=== PATIENT | male | born 1965 | race American Indian/Alaskan Native ===

== ENCOUNTER 2019-12-28 23:56 | Emergency (ER) | payer SELFPAY ==
[2019-12-29 00:29] LABS: Hematocrit 45.9 % (35.5-45.6); Hemoglobin 14.9 gm/dl (11.8-15.2); Mean Corpuscular HGB Conc 32 % (32-34); Mean Corpuscular Volume 80 fl (84-94); Platelet Count 159 K/mm3 (140-440); Red Blood Count 5.76 M/mm3 (3.65-5.03); Red Cell Distribution Width 14.4 % (13.2-15.2)
[2019-12-29 00:50] LABS: BUN/Creatinine Ratio 20; Blood Urea Nitrogen 18 mg/dL (9-20); Calcium 9.6 mg/dL (8.4-10.2)
[2019-12-29 00:51] LABS: Alanine Aminotransferase 12 units/L (7-56); Albumin 4.4 g/dL (3.9-5); Hemolysis Index 12
[2019-12-29 02:21] LABS: Basophils % (Manual) 0 % (0.0-1.8); Hypochromasia 1+; Total Cells Counted 100
[2019-12-29 02:22] LABS: Platelet Estimate Consistent w Auto
[2019-12-29 03:48] LABS: Bilirubin,Urine NEG (Negative); Blood,Urine NEG (Negative); Color,Urine Yellow (Yellow); Mucus,Urine FEW /HPF; Protein,Urine <15 mg/dL mg/dL (Negative); Urobilinogen,Urine < 2.0 mg/dL (<2.0)
[2019-12-29] MEDS ORDERED: KETOROLAC 30 MG/1 ML INJ IV ONE (05:34)
[2019-12-29] MEDS ORDERED: ONDANSETRON 4 MG/2 ML INJ IV ONE (05:34)
--- NOTE | 2019-12-29 06:10 | Cat Scan Report ---
CT ABDOMEN AND PELVIS WITHOUT CONTRAST INDICATION: Left flank pain. Left abdominal pain. COMPARISON: No relevant prior imaging study available. TECHNIQUE: Axial, coronal and sagittal CT imaging of the abdomen and pelvis was performed without co ntrast. Lack of intravenous contrast limits evaluation of the vascular and solid organs. All CT sca ns at this location are performed using CT dose reduction for ALARA by means of automated exposure co ntrol. FINDINGS: LOWER CHEST: No significant abnormality. LIVER: A probable cyst along the lateral segment of the left hepatic lobe measures 1.3 cm. No additio nal significant abnormality. BILIARY: No significant abnormality. PANCREAS: No significant abnormality. SPLEEN: No significant abnormality. ADRENALS: No significant abnormality. KIDNEYS AND URETERS: A right upper renal pole stone measures 4 mm without associated obstruction. No additional stones are seen. There is a possible hemorrhagic cyst along the left upper renal pole mckenna uring 1.4 cm. No additional significant abnormality. GI TRACT: No significant abnormality of the stomach, small bowel or colon. Unremarkable appendix. PERITONEUM: No free fluid. No free air. No fluid collection. LYMPH NODES: No significant adenopathy. VASCULATURE: The aorta is normal in caliber with mild aortoiliac atherosclerosis. URINARY BLADDER: No significant abnormality. REPRODUCTIVE ORGANS: No significant abnormality. ADDITIONAL FINDINGS: None. SKELETAL SYSTEM: No significant abnormality. IMPRESSION: 1. Nonobstructive 4 mm right renal stone. 2. Possible left renal hemorrhagic cyst. A nonemergent renal ultrasound would be helpful for further evaluation. 3. Additional findings as above. Signer Name: Meng Lombardi MD Signed: 12/29/2019 6:06 AM Workstation Name: [id number]
--- NOTE | 2019-12-29 07:22 | Emergency Department Report ---
ED Abdominal Pain HPI - General Chief Complaint: Abdominal Pain Stated Complaint: BACK,SIDE AND STOMACH PAIN Source: patient Mode of arrival: Ambulatory Limitations: No Limitations - History of Present Illness Initial Comments: Patient is a 54-year-old [place] male with no past medical history who presents to the ED with complaint of acute onset persistent left flank pain that radiates to the lower back and left lower quadrant area for the last 3 weeks, worse in the last 2 days. Patient states that he was initially evaluated at an urgent care clinic and advised that his symptoms were due to muscle spasms muscle strain and was given a prescription for ibuprofen and muscle relaxants. Patient states that despite taking these medications the pain has worsened. Patient d enies testicular pain, fever, chills, nausea, vomiting, dizziness, syncope, diarrhea, change in vision, traumatic injury or heavy lifting, chest pain or shortness of breath. MD Complaint: abdominal pain, flank pain (left flank pain), other (lower back) -: Sudden, month(s) (1) Location: LLQ, L flank Radiation: LLQ, L flank, back (lower ) Migration to: no migration Severity: severe Severity scale (0 -10): 8 Quality: aching, sharp Consistency: constant Improves With: nothing Worsens With: nothing Associated Symptoms: denies other symptoms. denies: nausea, vomiting, diarrhea, fever, chills, constipation, hematemesis, hematochezia, melena, hematuria, anorexia, syncope, other Treatments Prior to Arrival: NSAIDs - Related Data Previous Rx's Medication Instructions Recorded Last Taken Type Ketorolac [Toradol] 10 mg PO Q8H PRN #20 tablet 12/29/19 Unknown Rx Ondansetron [Zofran Odt] 4 mg PO Q6HR PRN #20 tab.rapdis 12/29/19 Unknown Rx Tamsulosin [Flomax] 0.4 mg PO QDAY #10 cap 12/29/19 Unknown Rx traMADoL [Ultram] 50 mg PO Q6HR PRN #12 tablet 12/29/19 Unknown Rx Allergies Allergy/AdvReac Type Severity Reaction Status Date / Time bee venom protein (honey bee) Allergy Swelling Verified 12/29/19 00:03 ED Review of Systems ROS: Stated complaint: BACK,SIDE AND STOMACH PAIN Other details as noted in HPI Constitutional: denies: chills, fever Eyes: denies: eye pain, eye discharge, vision change ENT: denies: ear pain, throat pain Respiratory: denies: cough, shortness of breath, wheezing Cardiovascular: denies: chest pain, palpitations Endocrine: no symptoms reported Gastrointestinal: abdominal pain (LLQ and left flank). denies: nausea, diarrhea Genitourinary: denies: urgency, dysuria Musculoskeletal: denies: back pain, joint swelling, arthralgia Skin: denies: rash, lesions Neurological: denies: headache, weakness, paresthesias Psychiatric: denies: anxiety, depression Hematological/Lymphatic: denies: easy bleeding, easy bruising ED Past Medical Hx - Past Medical History Previous Medical History?: No - Surgical History Past Surgical History?: Yes Additional Surgical History: left testicle removed - Social History Smoking Status: Current Every Day Smoker Substance Use Type: Alcohol - Medications Home Medications: Home Medications Medication Instructions Recorded Confirmed Last Taken Type Ketorolac [Toradol] 10 mg PO Q8H PRN #20 tablet 12/29/19 Unknown Rx Ondansetron [Zofran Odt] 4 mg PO Q6HR PRN #20 tab.rapdis 12/29/19 Unknown Rx Tamsulosin [Flomax] 0.4 mg PO QDAY #10 cap 12/29/19 Unknown Rx traMADoL [Ultram] 50 mg PO Q6HR PRN #12 tablet 12/29/19 Unknown Rx ED Physical Exam - General Limitations: No Limitations General appearance: alert, in no apparent distress - Head Head exam: Present: atraumatic, normocephalic, normal inspection - Eye Eye exam: Present: normal appearance, PERRL, EOMI Pupils: Present: normal accommodation - ENT ENT exam: Present: normal exam, normal orophraynx, mucous membranes moist, TM's normal bilaterally, normal external ear exam - Neck Neck exam: Present: normal inspection, full ROM - Respiratory Respiratory exam: Present: normal lung sounds bilaterally. Absent: respiratory distress, wheezes, rales, rhonchi, chest wall tenderness, accessory muscle use, decreased breath sounds - Cardiovascular Cardiovascular Exam: Present: regular rate, normal rhythm, normal heart sounds. Absent: systolic murmur, diastolic murmur, rubs, gallop - GI/Abdominal GI/Abdominal exam: Present: soft, tenderness (palpable left lower quadrant and left flank mild tenderness), normal bowel sounds. Absent: guarding, rebound, hyperactive bowel sounds, hypoactive bowel sounds - Extremities Exam Extremities exam: Present: normal inspection, full ROM, normal capillary refill - Back Exam Back exam: Present: normal inspection, full ROM, tenderness (palpable lumbosacral paraspinal musculoskeletal tenderness), muscle spasm, paraspinal tenderness. Absent: CVA tenderness (L), vertebral tenderness - Neurological Exam Neurological exam: Present: alert, oriented X3, CN II-XII intact, normal gait, reflexes normal - Psychiatric Psychiatric exam: Present: normal affect, normal mood - Skin Skin exam: Present: warm, dry, intact, normal color. Absent: rash ED Course Vital Signs 12/29/19 12/29/19 00:01 06:05 Temperature 98.6 F Pulse Rate 60 Respiratory 18 16 Rate Blood Pressure 141/78 O2 Sat by Pulse 99 Oximetry ED Medical Decision Making - Lab Data Result diagrams: 12/29/19 00:10 12/29/19 00:10 - Radiology Data Radiology results: report reviewed, [place] [address] Cat Scan Report Signed Patient: JEREMIAH MYERS MR#: [id number] : 1965 Acct:[id number] Age/Sex: 54 / M ADM Date: 12/28/19 Loc: ED Attending Dr: Ordering Physician: JASMIN FERNANDEZ Date of Service: 12/29/19 Procedure(s): CT abdomen pelvis wo con Accession Number(s): [id number] cc: JASMIN FERNANDEZ CT ABDOMEN AND PELVIS WITHOUT CONTRAST INDICATION: Left flank pain. Left abdominal pain. COMPARISON: No relevant prior imaging study available. TECHNIQUE: Axial, coronal and sagittal CT imaging of the abdomen and pelvis was performed without contrast. Lack of intravenous contrast limits evaluation of the vascular and solid organs. All CT scans at this location are performed using CT dose reduction for ALARA by means of automated exposure control. FINDINGS: LOWER CHEST: No significant abnormality. LIVER: A probable cyst along the lateral segment of the left hepatic lobe measures 1.3 cm. No additional significant abnormality. BILIARY: No significant abnormality. PANCREAS: No significant abnormality. SPLEEN: No significant abnormality. ADRENALS: No significant abnormality. KIDNEYS AND URETERS: A right upper renal pole stone measures 4 mm without associated obstruction. No additional stones are seen. There is a possible hemorrhagic cyst along the left upper renal pole measuring 1.4 cm. No additional significant abnormality. GI TRACT: No significant abnormality of the stomach, small bowel or colon. Unremarkable appendix. PERITONEUM: No free fluid. No free air. No fluid collection. LYMPH NODES: No significant adenopathy. VASCULATURE: The aorta is normal in caliber with mild aortoiliac atherosclerosis. URINARY BLADDER: No significant abnormality. REPRODUCTIVE ORGANS: No significant abnormality. ADDITIONAL FINDINGS: None. SKELETAL SYSTEM: No significant abnormality. IMPRESSION: 1. Nonobstructive 4 mm right renal stone. 2. Possible left renal hemorrhagic cyst. A nonemergent renal ultrasound would be helpful for further evaluation. 3. Additional findings as above. Signer Name: Meng Lombardi MD Signed: 12/29/2019 6:06 AM Workstation Name: [id number] Transcribed By: MICHELLE Dictated By: Meng Lombardi MD Electronically Authenticated By: Meng Lombardi MD Signed Date/Time: 12/29/19605 DD/ 9 TD/TT: - Medical Decision Making This is a 54-year-old [place] male who presented to the ED with persistent left flank pain that radiates to the left lower quadrant and lower back for the last 3 weeks worse in the last 3 days. In the ED, patient is alert and oriented 3 and is not in distress. Lab test results were reviewed and all nonactionable including urinalysis. Abdomen pelvis CT scan without contrast shows a nonobstructive 4 mm right renal stone, and a possible left renal hemorrhagic cyst. A nonemergent renal ultrasound would be helpful for further evaluation per the recommendation of the radiologist. Patient was treated for pain in the ED and on reevaluation, patient pain is resolved medications. Patient was discharged home on pain medications, Flomax and antiemetics and given a referral to the urologist Dr. Olson follow follow-up of his kidney stones and they suspected left renal hemorrhagic cyst. Patient was advised to contact Dr. Olson this morning to schedule a follow-up appointment. Patient was otherwise advised to return to the ED immediately if symptoms get worse. - Differential Diagnosis kidney stones; UTI; Muscle spasm; low back pain Critical care attestation.: If time is entered above; I have spent that time in minutes in the direct care of this critically ill patient, excluding procedure time. ED Disposition Clinical Impression: Abdominal pain in male, Acute left flank pain, Kidney stone on left side Disposition: TO HOME OR SELFCARE Is pt being admited?: No Does the pt Need Aspirin: No Condition: Stable Instructions: Kidney Stones (ED), Renal Colic (ED), Flank Pain (ED) Additional Instructions: Take medication with food, drink plenty of fluids and follow-up. They urologist Dr. Olson as advised. Contact the urologist's office this morning to schedule a follow-up appointment. Return to ED immediately if symptoms get worse. Prescriptions: Tamsulosin [Flomax] 0.4 mg PO QDAY #10 cap Ketorolac [Toradol] 10 mg PO Q8H PRN #20 tablet PRN Reason: Pain traMADoL [Ultram] 50 mg PO Q6HR PRN #12 tablet PRN Reason: Pain Ondansetron [Zofran Odt] 4 mg PO Q6HR PRN #20 tab.rapdis PRN Reason: Nausea Referrals: NIKOLAY OLSON MD [Staff Physician] - [facility] Forms: Work/School Release Form(ED) Time of Disposition: 07:28 Print Language: GEORGIAN
[2019-12-29 07:44] VITALS: BP 137/74
== END 2019-12-29 07:41 | disposition home or self-care (01) ==
LOC: ED 23:56
DX: N20.0 Calculus of kidney (principal); F17.200 Nicotine dependence, unspecified, uncomplicated; Z98.890 Other specified postprocedural states; Z91.030 Bee allergy status; Z79.1 Long term (current) use of non-steroidal anti-inflammatories (NSAID); Z79.899 Other long term (current) drug therapy
CPT/HCPCS: 36415; 74176; 80053; 81001; 85007; 85025; 96374; 96375; 99284; J1885; J2405